=== PATIENT | male | born 1985 | race Caucasian/White ===

== ENCOUNTER 2017-02-24 16:40 | Emergency (ER) | payer MEDICAID ==
--- NOTE | 2017-02-24 16:40 | EDPHY ---
H & P Time Seen by Provider: 02/24/17 16:40 HPI/ROS: CHIEF COMPLAINT: Abdominal pain HISTORY OF PRESENT ILLNESS: Patient is brought in by [facility] with complaint of abdominal pain since waking up this morning. Patient admits to occasional alcohol but does not drink a lot. He says he had previous gallbladder symptoms which is put him in the hospital but can't tell me when or even where or even what state that might have been in. He says his pain is all upper abdominal today. It does not radiate. It is associated with nausea and some vomiting and decreased oral intake and worse with trying to eat or drink. Also has some fever and chills. No recent fall injury or trauma. Some diarrhea. No urinary symptoms. REVIEW OF SYSTEMS: Eye: no change in vision ENT: no sore throat Cardiac: no chest pain or syncope Pulmonary: no cough or SOB Abdomen: HPI Musculoskeletal: no back pain Skin: no rash Neuro: no headache Constitutional: HPI : no urinary symptoms A comprehensive 10 point review of systems is otherwise negative aside from elements mentioned in the history of present illness. PAST MEDICAL HISTORY: "Gallbladder problems" but does not know further details. Negative for pancreatitis. No previous surgeries. Social history: Tobacco smoking, occasional alcohol. Previous ED visit 2015 including methamphetamine use. General Appearance: Alert and conversant, cooperative. Eyes: No scleral icterus. ENT, Mouth: Normal mucous membranes. Respiratory: Normal respiratory effort, breath sounds equal, lungs are clear to auscultation. Cardiovascular: Regular rate and rhythm. Gastrointestinal: Mild epigastric and right upper quadrant tenderness but no rebound or guarding. Neurological: Alert and oriented x3. Normally conversant. Face symmetric, normal movement and sensation in all extremities. Skin: Warm and dry, no rashes. Musculoskeletal: No peripheral edema and no joint swelling. Psychiatric: Not agitated. Emergency Department course/MDM: I-STAT, normal saline 2 L for nausea and vomiting, Zofran 4 mg IV. 1840: Patient is sleeping quietly but easily awakened and I had to wake him up. Does not appear in distress. After waking up, he says he still has abdominal pain. Soft and nontender at this time. I think acute surgical abdominal process is unlikely. Constitutional: Initial Vital Signs Temperature (C) 37.5 C 02/24/17 16:50 Heart Rate 96 02/24/17 16:50 Respiratory Rate 17 02/24/17 16:50 Blood Pressure 118/74 02/24/17 16:50 O2 Sat (%) 96 02/24/17 16:50 O2 Delivery Mode Room Air Allergies/Adverse Reactions: No Known Allergies Allergy (Verified 02/24/17 16:50) Home Medications: Medication Instructions Recorded NK [No Known Home Meds] 06/15/16 Medical Decision Making Differential Diagnosis: Differential considered including but not limited to appendicitis, bowel obstruction, pancreatitis, gallbladder disease, hepatitis, GERD. - Data Points Laboratory Results: Laboratory Results 02/24/17 16:45 02/24/17 16:45 02/24/17 02/24/17 02/24/17 16:46 16:45 16:45 WBC 13.44 10^3/uL H 10^3/uL (3.80-9.50) RBC 5.03 10^6/uL 10^6/uL (4.40-6.38) Hgb 15.5 g/dL g/dL (13.7-17.5) POC Hgb 16.3 gm/dL gm/dL (14.5-17.3) Hct 44.9 % % (40.0-51.0) POC Hct 48 % % (42.8-50.6) MCV 89.3 fL fL (81.5-99.8) MCH 30.8 pg pg (27.9-34.1) MCHC 34.5 g/dL g/dL (32.4-36.7) RDW 13.0 % % (11.5-15.2) Plt Count 287 10^3/uL 10^3/uL (150-400) MPV 11.1 fL fL (8.7-11.7) Neut % (Auto) 83.4 % H % (39.3-74.2) Lymph % (Auto) 7.7 % L % (15.0-45.0) Williams % (Auto) 3.3 % L % (4.5-13.0) Eos % (Auto) 4.8 % % (0.6-7.6) Baso % (Auto) 0.2 % L % (0.3-1.7) Nucleat RBC Rel Count 0.0 % % (0.0-0.2) Absolute Neuts (auto) 11.19 10^3/uL H 10^3/uL (1.70-6.50) Absolute Lymphs (auto) 1.04 10^3/uL 10^3/uL (1.00-3.00) Absolute Monos (auto) 0.45 10^3/uL 10^3/uL (0.30-0.80) Absolute Eos (auto) 0.65 10^3/uL H 10^3/uL (0.03-0.40) Absolute Basos (auto) 0.03 10^3/uL 10^3/uL (0.02-0.10) Absolute Nucleated RBC 0.00 10^3/uL 10^3/uL (0-0.01) Immature Gran % 0.6 % % (0.0-1.1) Immature Gran # 0.08 10^3/uL 10^3/uL (0.00-0.10) POC Sodium 141 mEq/L mEq/L (134-144) Sodium 138 mEq/L mEq/L (134-144) POC Potassium 4.2 mEq/L mEq/L (3.3-5.0) Potassium 4.7 mEq/L mEq/L (3.5-5.2) POC Chloride 104 mEq/L mEq/L (96-108) Chloride 104 mEq/L mEq/L (97-110) Carbon Dioxide 25 mEq/l mEq/l (22-31) Anion Gap 9 mEq/L mEq/L (8-16) POC BUN 18 mg/dL mg/dL (7-23) BUN 17 mg/dL mg/dL (7-23) Creatinine 0.9 mg/dL mg/dL (0.7-1.3) POC Creatinine 0.9 mg/dL mg/dL (0.8-1.5) Estimated GFR > 60 Glucose 79 mg/dL mg/dL (70-100) POC Glucose 83 mg/dL mg/dL (70-100) Calcium 9.9 mg/dL mg/dL (8.5-10.4) Total Bilirubin 1.2 mg/dL mg/dL (0.1-1.4) Conjugated Bilirubin 0.3 mg/dL mg/dL (0.0-0.5) Unconjugated Bilirubin 0.9 mg/dL mg/dL (0.0-1.1) AST 54 IU/L IU/L (17-59) ALT 96 IU/L H IU/L (21-72) Alkaline Phosphatase 50 IU/L IU/L (38-126) Total Protein 7.5 g/dL g/dL (6.3-8.2) Albumin 4.4 g/dL g/dL (3.5-5.0) Lipase 39.0 IU/L IU/L (23-300) Medications Given: Discontinued Medications Sodium Chloride (Ns) 1,000 mls @ 0 mls/hr IV ONCE ONE PRN Reason: Wide Open Stop: 02/24/17 16:48 Last Admin: 02/24/17 17:05 Dose: 1,000 mls Sodium Chloride (Ns) 1,000 mls @ 0 mls/hr IV ONCE ONE PRN Reason: Wide Open Stop: 02/24/17 16:48 Last Admin: 02/24/17 17:05 Dose: 1,000 mls Ketorolac Tromethamine (Toradol) 30 mg IVP EDNOW ONE Stop: 02/24/17 17:27 Last Admin: 02/24/17 17:27 Dose: 30 mg Ondansetron HCl (Zofran) 4 mg IVP EDNOW ONE Stop: 02/24/17 16:48 Last Admin: 02/24/17 17:05 Dose: 4 mg Point of Care Test Results: 02/24/17 16:46 POC Sodium 141 POC Potassium 4.2 POC Chloride 104 POC BUN 18 POC Creatinine 0.9 POC Glucose 83 Departure - Departure Disposition: Home, Routine, Self-Care Clinical Impression: Abdominal pain Qualifiers: Abdominal location: upper abdomen, unspecified Qualified Code(s): R10.10 - Upper abdominal pain, unspecified Condition: Good Instructions: Acute Abdominal Pain (ED) Referrals: Patient,NotPresent [Unknown] - As per Instructions [facility],. [Clinic] - As per Instructions
[2017-02-24] MEDS ORDERED: ONDANSETRON 4 MG/2 ML VIAL IVP ONE (16:47)
[2017-02-24] MEDS ORDERED: NS 1,000 ML IV ONE ×2 (16:47)
[2017-02-24 16:51] VITALS: RESP 17; TEMP 99.5
[2017-02-24 17:02] LABS: % IMMATURE GRANULYOCYTES 0.6 % (0.0-1.1); ABSOLUTE IMMATURE GRANULOCYTES 0.08 10^3/uL (0.00-0.10); ADD DIFF? NO; ADD MORPH? NO; ADD SCAN? NO; ATYPICAL LYMPHOCYTE FLAG 10 (0-99); FRAGMENT RBC FLAG 0 (0-99); HEMATOCRIT 44.9 % (40.0-51.0); HEMOGLOBIN 15.5 g/dL (13.7-17.5); LEFT SHIFT FLG 0 (0-99); LIPEMIA HEMOLYSIS FLAG 90 (0-99); MEAN CELL HEMOGLOBIN 30.8 pg (27.9-34.1); MEAN CELL HEMOGLOBIN CONCENTR. 34.5 g/dL (32.4-36.7); MEAN CELL VOLUME 89.3 fL (81.5-99.8); MEAN PLATELET VOLUME 11.1 fL (8.7-11.7); PLATELET CLUMPS FLAG 0 (0-99); PLATELET COUNT 287 10^3/uL (150-400); RED BLOOD CELL COUNT 5.03 10^6/uL (4.40-6.38)
[2017-02-24 17:18] LABS: ALANINE AMINOTRANSFERASE 96 IU/L (21-72); ALBUMIN 4.4 g/dL (3.5-5.0); ALKALINE PHOSPHATASE 50 IU/L (38-126); ANION GAP 9 mEq/L (8-16); ASPARTATE AMINOTRANSFERASE 54 IU/L (17-59); BILIRUBIN,TOTAL 1.2 mg/dL (0.1-1.4); BILIRUBIN-CONJUGATED 0.3 mg/dL (0.0-0.5); BILIRUBIN-UNCONJUGATED 0.9 mg/dL (0.0-1.1); CALCIUM 9.9 mg/dL (8.5-10.4); CARBON DIOXIDE 25 mEq/l (22-31); CHLORIDE 104 mEq/L (97-110); CREATININE 0.9 mg/dL (0.7-1.3); GLOMERULAR FILTRATION RATE > 60; GLUCOSE 79 mg/dL (70-100); POTASSIUM 4.7 mEq/L (3.5-5.2); SODIUM 138 mEq/L (134-144); TOTAL PROTEIN 7.5 g/dL (6.3-8.2)
[2017-02-24] MEDS ORDERED: KETOROLAC 30 MG/1 ML SDV ONE (17:21)
[2017-02-24] MEDS ORDERED: KETOROLAC 30 MG/1 ML SDV IVP ONE (17:26)
[2017-02-24 18:22] VITALS: BP 114/68; PULSE 100; O2SAT 93
== END 2017-02-24 20:09 | disposition home or self-care (01) ==
LOC: EDUNIT#
DX: R10.10 Upper abdominal pain, unspecified (principal); F17.200 Nicotine dependence, unspecified, uncomplicated
CPT/HCPCS: 82947-QW; 96374; J1885; J2405

== ENCOUNTER 2017-03-15 11:11 | Emergency (ER) | payer MEDICAID ==
[2017-03-15] MEDS ORDERED: SULFAMETHOX/TMP 800/160 MG 1 TAB PO ONE (13:03)
[2017-03-15] MEDS ORDERED: IBUPROFEN 600 MG TAB PO ONE (13:03)
[2017-03-15] MEDS ORDERED: CEPHALEXIN 500 MG CAP PO ONE (13:03)
--- NOTE | 2017-03-15 13:07 | EDPHY ---
H & P Stated Complaint: lesion to r index finger x 2 days HPI/ROS: CHIEF COMPLAINT: Finger infection, possible spider bite HISTORY OF PRESENT ILLNESS: Patient complains of 2 days history of left finger pain and possible infection feels that a spider bite causes. Mild 1st now moderate to severe. Painful with flexion. Warm to the touch. No fever or chills. No numbness or tingling. Worse when dependently hanging, but it improves when he elevates it. No trauma or injury that he knows of for sure. No other associated complaints or modifying factors. REVIEW OF SYSTEMS: Ten systems reviewed and are negative unless otherwise noted in the HPI EXAMINATION General Appearance: Alert, no distress Cardiovascular: Pulses normal throughout. Symmetric radial pulses 2+. Brisk cap refill Neurological: A&O, sensory symmetric, strength symmetric. Normal 2 point sensation. Skin: Warm and dry, no rash. Mild erythema over the dorsum of the left hand no further distal than the metacarpals. There is mild erythema of the proximal phalanx on the left index finger with a central area of ulceration. Extremities: Tenderness to palpation of the left index finger. There is no warmth to the MCP, PIP or the IP. Flexion is limited by pain but not by actual range of motion. When distracted he will flex the finger fully. He is neurovascular intact distally with brisk cap refill. There is no thrombophlebitis. No evidence of septic joint. No evidence of tenosynovitis Psychiatric: Mood and affect normal DIFFERENTIAL DIAGNOSES: Including but not limited to skin infection/cellulitis, finger infection, insect bite, spider bite, abscess, ulceration, tenosynovitis, septic joint MDM: 1:04 p.m. Superficial infection of the left index finger. There is no evidence of septic joint. There is mild surrounding cellulitis. Vital signs are within normal limits. He is neurovascular intact distally. Unknown etiology for this. There is a small area of ulceration in the central region, suggesting the possibility of insect bite versus spider bite. First dose of Bactrim and Keflex are provided here. Discharged home with the same for the next 10 days. I have strict return to emergency department caution should the symptoms worsen , we have difficulty bending the finger or he develops fever. He is to return here or his primary care physician in 48 hours for wound recheck. He is to return sooner for worsening condition as discussed. He is comfortable with this pain, he is discharged home stable condition, neurovascular intact ED Precautions: Worsening pain. Erythema, edema, cyanosis, pallor, paresthesia or anesthesia. SUPERVISION: This patient was independently evaluated without direct examination by the attending physician. Case was discussed with attending physician. Source: Patient Exam Limitations: No limitations - Personal History Current Tetanus/Diphtheria Vaccine: Yes - Medical/Surgical History Hx Asthma: No Hx Chronic Respiratory Disease: No Hx Diabetes: No Hx Cardiac Disease: No Hx Renal Disease: No Hx Cirrhosis: No Hx Alcoholism: No Hx HIV/AIDS: No Hx Splenectomy or Spleen Trauma: No Other PMH: "gallbladder issues" - Social History Smoking Status: Current every day smoker Constitutional: Initial Vital Signs Temperature (C) 98.1 F 03/15/17 11:14 Heart Rate 92 03/15/17 11:14 Respiratory Rate 18 03/15/17 11:14 Blood Pressure 107/60 03/15/17 11:14 O2 Sat (%) 96 03/15/17 11:14 O2 Delivery Mode Room Air Allergies/Adverse Reactions: No Known Allergies Allergy (Verified 03/15/17 11:14) Home Medications: Medication Instructions Recorded Acetaminophen/Codeine 300/30Mg 1 each PO Q6 PRN #15 tab 03/15/17 [Tylenol #3 (*)] Cephalexin [Keflex (*)] 500 mg PO TID #30 cap 03/15/17 Sulfamethox/Tmp 800/160 mg 2 tab PO BID 10 Days 03/15/17 [Bactrim Ds] Departure - Departure Disposition: Home, Routine, Self-Care Clinical Impression: Finger infection, Cellulitis of hand excluding fingers Condition: Good Instructions: Cellulitis (ED) Additional Instructions: 1. Bactrim DS 2 pills twice daily for 10 days 2. Keflex 3 times daily for next 10 days 3. Ibuprofen 600-800 mg every 8 hours as needed 4. Tylenol with codeine as prescribed as needed for pain 5. Follow up with primary care physician, hand surgeon or here in 2 days for wound recheck 6. Return sooner for signs of worsening as we discussed Referrals: NONE *PRIMARY CARE P,. [Primary Care Provider] - As per Instructions [facility],. [Clinic] - As per Instructions Physician,Emergency Dept [Medical Doctor] - As per Instructions Prescriptions: Acetaminophen/Codeine 300/30Mg [Tylenol #3 (*)] 1 each PO Q6 PRN #15 tab PRN Reason: Pain, Mild Cephalexin [Keflex (*)] 500 mg PO TID #30 cap Sulfamethox/Tmp 800/160 mg [Bactrim Ds] 2 tab PO BID 10 Days
[2017-03-15 13:42] VITALS: BP 122/70; PULSE 80; RESP 16; TEMP 96.8; O2SAT 98
== END 2017-03-15 13:41 | disposition home or self-care (01) ==
DX: L03.012 Cellulitis of left finger (principal); F17.200 Nicotine dependence, unspecified, uncomplicated

== ENCOUNTER 2017-04-01 03:43 | Emergency (ER) | payer MEDICAID ==
[2017-04-01 03:56] VITALS: PULSE 102; TEMP 98.2
[2017-04-01] MEDS ORDERED: LORazepam 1 MG TAB PO ONE (04:15)
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
[2017-04-01 06:20] VITALS: BP 108/64; RESP 16; O2SAT 98
== END 2017-04-01 06:20 | disposition home or self-care (01) ==
LOC: EDUNIT#
DX: R44.3 Hallucinations, unspecified (principal); F17.200 Nicotine dependence, unspecified, uncomplicated; F15.90 Other stimulant use, unspecified, uncomplicated

== ENCOUNTER 2017-07-02 01:53 | Emergency (ER) | payer MEDICAID ==
[2017-07-02] MEDS ORDERED: LORazepam 2 MG/ML INJ IVP ONE (02:21)
[2017-07-02] MEDS ORDERED: NS 1,000 ML IV ONE (02:21)
--- NOTE | 2017-07-02 02:34 | EDPHY ---
H & P Stated Complaint: Meth, hallucinating, paranoid Source: Patient Exam Limitations: No limitations - Personal History Current Tetanus/Diphtheria Vaccine: Yes Current Tetanus Diphtheria and Acellular Pertussis (TDAP): Yes Tetanus Vaccine Date: 2014 - Medical/Surgical History Hx Asthma: No Hx Chronic Respiratory Disease: No Hx Diabetes: No Hx Cardiac Disease: No Hx Renal Disease: No Hx Cirrhosis: No Hx Alcoholism: No Hx HIV/AIDS: No Hx Splenectomy or Spleen Trauma: No Other PMH: "gallbladder issues", sciatica, ADD - Social History Smoking Status: Heavy smoker Time Seen by Provider: 07/02/17 02:19 HPI/ROS: HPI The patient presents brought in by ambulance after meth binge, with paranoid hallucinations that people are following him. These have been constant, getting progressively worse, and are severe. He received Versed 1 mg in the ambulance. REVIEW OF SYSTEMS Constitutional: No fever, no chills. Eyes: No discharge. ENT: No sore throat. Cardiovascular: No chest pain, no palpitations. Respiratory: No cough, no shortness of breath. Gastrointestinal: No abdominal pain, no vomiting. Genitourinary: No hematuria. Musculoskeletal: No back pain. Skin: No rashes. Neurological: No headache. PMHx: Seen once in the emergency room before by me for meth induced paranoid hallucinations Soc Hx: Meth use, homeless PHYSICAL General Appearance: Alert, no distress Eyes: Pupils equal and round no pallor or injection ENT, Mouth: Mucous membranes moist Respiratory: There are no retractions, lungs are clear to auscultation Cardiovascular: Tachycardic rate and regular rhythm Gastrointestinal: Abdomen is soft and non-tender, no masses, bowel sounds normal Neurological: A&O, moves all extremities Skin: Warm and dry, no rashes Musculoskeletal: Neck is supple non tender Extremities: symmetrical, full range of motion Psychiatric: Patient is alert and oriented, he is pacing and appears somewhat agitated (Delisa Phoenix) Constitutional: Initial Vital Signs Temperature (C) 36.8 C 07/02/17 02:11 Heart Rate 141 H 07/02/17 02:11 Respiratory Rate 18 07/02/17 02:11 Blood Pressure 97/51 L 07/02/17 02:11 O2 Sat (%) 91 L 07/02/17 02:11 O2 Delivery Mode Room Air Allergies/Adverse Reactions: No Known Allergies Allergy (Verified 03/15/17 11:14) Home Medications: Medication Instructions Recorded NK [No Known Home Meds] 07/02/17 Medical Decision Making ED Course/Re-evaluation: 7:00 a.m.-I assumed care of this patient at shift change. He has history of methamphetamine abuse with associated paranoia. He has received Ativan and Zyprexa. The plan is to observe in the emergency department and hopefully his mental status will improve to baseline. For now, he will not have a psychiatric evaluation. Ativan 2mg po given. 11am: calm, cooperative. Does not seem paranoid. Will cont to observe. 1pm: continues to be calm and cooperative. Not paranoid or delusional. d/w pt drug-induced paranoia, need to seek help for drug addiction. 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 On arrival , he is tachycardic, pacing, appears paranoid and responding to internal stimuli. In the emergency department, the patient was given IV fluids and Ativan. He unfortunately continued to be agitated and paranoid and pulled out his IV. I placed him on a detain her after this. Over time, he was able to rest, and asked for something to help with sleep. I gave him a dose of Zyprexa Zydis which improved his symptoms. He moved to the psychiatric portion of the emergency room because he wanted to be in a room that was quiet. His over time he became more awake and oriented. His paranoia improved. At approximately 7:00 a.m., I signed the case out to Dr. Moreno pending the patient's sobriety. I have ordered an additional dose of Ativan to be given by mouth for him as he has been observed staring out the window of his room, appearing paranoid. I believe all of his symptoms are due to methamphetamine intoxication and I do not think Psychiatric evaluation is needed. However if he does not appropriately metabolize over the next several hours, he may need to have labs checked and a mental health evaluation. I anticipate though that he will be suitable for discharge later this morning. (Delisa Phoenix) - Data Points Medications Given: Discontinued Medications Sodium Chloride (Ns) 1,000 mls @ 0 mls/hr IV EDNOW ONE; Wide Open PRN Reason: Protocol Stop: 07/02/17 02:22 Last Admin: 07/02/17 02:29 Dose: 1,000 mls Lorazepam (Ativan Injection) 1 mg IVP EDNOW ONE Stop: 07/02/17 02:22 Last Admin: 07/02/17 02:30 Dose: 2 mg Lorazepam (Ativan) 2 mg PO EDNOW ONE Stop: 07/02/17 07:14 Last Admin: 07/02/17 07:47 Dose: 2 mg Olanzapine (Zyprexa Zydis) 10 mg PO EDNOW ONE Stop: 07/02/17 04:42 Last Admin: 07/02/17 04:42 Dose: 10 mg Departure - Departure Disposition: Home, Routine, Self-Care Clinical Impression: Methamphetamine abuse, Paranoid delusion Condition: Good Instructions: Methamphetamine Abuse (ED) Referrals: [facility],. [Clinic] - As per Instructions
[2017-07-02] MEDS ORDERED: OLANZapine DISINTEGR 10 MG TAB ONE (04:30)
[2017-07-02] MEDS ORDERED: OLANZapine DISINTEGR 10 MG TAB PO ONE (04:41)
[2017-07-02] MEDS ORDERED: LORazepam 1 MG TAB PO ONE (07:13)
[2017-07-02 11:42] VITALS: RESP 16; O2SAT 98
[2017-07-02 13:13] VITALS: BP 128/76; PULSE 100; TEMP 97.7
== END 2017-07-02 13:13 | disposition home or self-care (01) ==
LOC: EDUNIT#
DX: F22 Delusional disorders (principal); F15.10 Other stimulant abuse, uncomplicated; F17.200 Nicotine dependence, unspecified, uncomplicated; E86.9 Volume depletion, unspecified
CPT/HCPCS: 96374; J2060